=== PATIENT | female | born 1985 | race Caucasian/White ===

== ENCOUNTER 2020-01-15 10:46 | Emergency (ER) | payer OTHER, SELFPAY ==
--- NOTE | ~2020-01-15 | XR_ITS ---
EXAMINATION: XR foot LT min 3V EXAM DATE: 01/15/2020 11:14 INDICATION: Initial encounter following injury, with pain of the left foot, ankle. TECHNIQUE: Left foot dorsoplantar, lateral and oblique projections obtained and reviewed. Left ankle frontal, lateral and oblique projections obtained and reviewed. There is no prior study for compari son. FINDINGS: Left metatarsal bones unremarkable. The left ankle mortise appears intact. There are no acute fractures or dislocations identified. There is no subcutaneous gas. The soft tissue is unrem arkable. There are no radiopaque foreign bodies. IMPRESSION: 1. XR foot LT min 3V exam without acute osseous findings. Reviewed, dictated and finalized at location A.
--- NOTE | ~2020-01-15 | XR_ITS ---
EXAMINATION: XR ankle LT min 3V EXAM DATE: 01/15/2020 11:13 INDICATION: Initial encounter following injury, with pain of the left foot, ankle. TECHNIQUE: Left foot dorsoplantar, lateral and oblique projections obtained and reviewed. Left ankle frontal, lateral and oblique projections obtained and reviewed. There is no prior study for compari son. FINDINGS: Left metatarsal bones unremarkable. The left ankle mortise appears intact. There are no acute fractures or dislocations identified. There is no subcutaneous gas. The soft tissue is unrem arkable. There are no radiopaque foreign bodies. IMPRESSION: 1. Left foot, ankle exam without acute osseous findings. Reviewed, dictated and finalized at location A.
--- NOTE | 2020-01-15 11:06 | ED.GENADULT ---
HPI - General Adult General Chief complaint: Extremity Injury, Lower Stated complaint: L foot pain History of Present Illness HPI narrative: Tika is a previously healthy 34F that presented to the ED for left foot pain. She rolled it while walking 2 days ago. She has had worsening pain and swelling on the lateral side of her left foor since then. No other injuries or symptoms were reported. Related Data Home Medications Medication Instructions Recorded Confirmed No Home Medications 01/15/20 01/15/20 Allergies Allergy/AdvReac Type Severity Reaction Status Date / Time codeine AdvReac Nausea Verified 01/15/20 11:13 Review of Systems Constitutional: Constitutional: Reports no additional constitutional complaints Eyes: Eyes: Reports no additional eye complaints ENT: Reports system reviewed and no additional complaints, except as documented Cardiovascular: Cardiovascular: Reports no additional cardiovascular complaints Respiratory: Respiratory: Reports no additional respiratory complaints Gastrointestinal: Gastrointestinal: Reports no additional gastrointestinal complaints Musculoskeletal: Musculoskeletal: Reports as per HPI Integumentary/Breasts: Skin/Breast: Reports system reviewed and no additional complaints, except as docu Neurologic: Reports system reviewed and no additional complaints, except as documented Psychiatric: Psychiatric: Reports no additional psychiatric complaints Exam Const: General: no acute distress; No alert Orientation/consciousness: patient oriented x3 HENMT: Head: normal to inspection Eyes: Pupils: Equal, round and reactive pupils present Neck: Neck: normal visual inspection Chest: Chest palpation & inspection: normal inspection of the chest Resp: Effort & Inspection: normal respiratory effort and not labored Cardio: Rate: regular rate Skin: General skin exam: normal color Rashes: no rashes Neuro: General: patient oriented x3 and moves all extremities Extrem: Other: TTP over the 4th and 5th metatarsals of the left foot. No TTP over the ankle or lower extremity. no discoloration. Mild swelling Psych: Mental Status: mental status grossly normal Course Course Emergency Course: Seen and evaluated. Declined pain meds. Ordered radiographs. EXAMINATION: XR ankle LT min 3V EXAM DATE: 01/15/2020 11:13 INDICATION: Initial encounter following injury, with pain of the left foot, ankle. TECHNIQUE: Left foot dorsoplantar, lateral and oblique projections obtained and reviewed. Left ankle frontal, lateral and oblique projections obtained and reviewed. There is no prior study for comparison. FINDINGS: Left metatarsal bones unremarkable. The left ankle mortise appears intact. There are no acute fractures or dislocations identified. There is no subcutaneous gas. The soft tissue is unremarkable. There are no radiopaque foreign bodies. IMPRESSION: 1. Left foot, ankle exam without acute osseous findings. Vital Signs Vital signs: Vital Signs Temperature 36.9 C 01/15/20 11:13 Pulse Rate 88 01/15/20 11:13 Respiratory Rate 17 01/15/20 11:13 Blood Pressure 139/83 01/15/20 11:13 Pulse Oximetry 98 01/15/20 11:13 Temperature 36.9 C 01/15/20 11:13 Pulse Rate 88 01/15/20 11:13 Respiratory Rate 17 01/15/20 11:13 Blood Pressure 139/83 01/15/20 11:13 Pulse Oximetry 98 01/15/20 11:13 Medical Decision Making Vital Signs Vital Signs: Vital Signs Temperature 36.9 C 01/15/20 11:13 Pulse Rate 88 01/15/20 11:13 Respiratory Rate 01/15/20 11:13 Blood Pressure 139/83 01/15/20 11:13 Pulse Oximetry 98 01/15/20 11:13 Temperature 36.9 C 01/15/20 11:13 Pulse Rate 88 01/15/20 11:13 Respiratory Rate 01/15/20 11:13 Blood Pressure 139/83 01/15/20 11:13 Pulse Oximetry 98 01/15/20 11:13 Discharge Plan Discharge Clinical Impression: Ankle sprain and strain Patient Disposition: Home, Self-Care
[2020-01-15 11:13] VITALS: BP 139/83; PULSE 88; RESP 17; TEMP 36.9; O2SAT 98
== END 2020-01-15 11:30 | disposition home or self-care (01) ==
PROVIDERS: Emergency Provider Family Medicine
DX: S93.602A Unspecified sprain of left foot, initial encounter (principal); Y93.01 Activity, walking, marching and hiking
CPT/HCPCS: 73610; 73630; 99282; 99283

== ENCOUNTER 2020-06-30 15:58 | Outpatient (RCR) | payer OTHER, SELFPAY ==
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
--- NOTE | 2020-07-24 08:41 | PCPTNOTE ---
Pt. contacted the clinic stating that she had moved to [place] and would like to attend a facility closer to her home. Refer to pt. last daily note for discharge status. Thank you for the referral of this patient. Mikael Willis, MPT
== END 2020-07-07 09:46 | disposition home or self-care (01) ==
LOC: CHSPT 15:58
PROVIDERS: PCP Physician Assistant; Visit Provider Physician Assistant
DX: M25.551 Pain in right hip (principal)
CPT/HCPCS: 97110; 97161; 97530

== ENCOUNTER 2025-02-03 14:06 | Outpatient (CLI) | payer OTHER, SELFPAY ==
--- NOTE | 2025-02-03 14:22 | ECG_ITS ---
Test Date: 2025-02-03 14:46:54 Measurements Intervals [place] Rate: 72 P: 42 SC: 299 QRS: 53 QRSD: 92 T: 36 QT: 406 QTc: 447 Interpretive Statements SINUS RHYTHM WITH FIRST DEGREE AV BLOCK No previous ECG available for comparison Electronically Signed On 02-03-2025 15:02:21 CDT by Andrey Lezama M.D.
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
[2025-02-03 14:32] LABS: Hematocrit 46.0 % (37.0-47.0); Hemoglobin 15.3 g/dL (12.0-15.0); Mean Corpuscular HGB Conc 33.3 g/dl (32-36); Mean Corpuscular Hemoglobin 32.1 pg (26-34); Mean Corpuscular Volume 96.6 fl (80-100); Platelet Count Result 390 k/mm3 (150-375); Red Blood Count 4.76 M/mm3 (4.2-5.4); White Blood Count 10.4 K/mm3 (4.5-10.0)
[2025-02-03 14:57] LABS: Anisocytosis 1+; Basophils Absolute Manual 0.10 K/mm3 (0.0-0.1); Basophils Percent Manual 1 % (0-1); Eosinophils Absolute Manual 0.20 K/mm3 (0.02-0.50); Eosinophils Percent Manual 2 % (0-4); Lymphocytes Absolute Manual 4.36 K/mm3 (1.1-4.5); Lymphocytes Percent Manual 42 % (18-44); Monocytes Absolute Manual 0.72 K/mm3 (0.1-0.90); Monocytes Percent Manual 7 % (3-9); Neutrophils Percent Manual 48 % (46-73); Schistocytes None Seen; Total Cells Counted 100
== END 2025-02-03 14:07 | disposition home or self-care (01) ==
LOC: ANHLAB 14:10
PROVIDERS: PCP Registered Nurse; Visit Provider Obstetrics & Gynecology
DX: F17.210 Nicotine dependence, cigarettes, uncomplicated (principal); R10.2 Pelvic and perineal pain; N39.3 Stress incontinence (female) (male); I44.0 Atrioventricular block, first degree
CPT/HCPCS: 36415; 85025; 86850; 86900; 86901; 93005

== ENCOUNTER 2025-02-04 00:04 | Day surgery (SDC) | payer OTHER, SELFPAY ==
--- NOTE | 2025-02-01 07:25 | PM.IMHP ---
H&P: HPI History of Present Illness Date/Time: 02/01/25 07:25 Chief Complaint: Pelvic pain/high-grade EDMAR/stress urinary incontinence Narrative: This is a 39-year-old multiparous female admitted for robotic hysterectomy bilateral salpingectomy secondary to pelvic pain and recurrent high-grade EDMAR. She also complains of stress urinary incontinence losing urine with coughing laughing sneezing and finding the socially embarrassing. She has tried Kegel exercises without success. Risks and benefits of these procedures were reviewed including but exclusive of , aspiration, bleeding, transfusion, perforation injury to bowel bladder, ureters, or other internal organs with need for open laparotomy. The risk of mesh erosion was reviewed. The risk of need for catheterization was noted as well. The patient had all questions answered received the ACOG handout entitled hysterectomy as well as the de Miguel A handout in the TVT handout. She had all questions answered and asked to proceed Review of Systems Constitutional: Constitutional: Reports no additional constitutional complaints Eyes: Eyes: Reports no additional eye complaints ENT: Reports system reviewed and no additional complaints, except as documented Cardiovascular: Cardiovascular: Reports no additional cardiovascular complaints Respiratory: Respiratory: Reports no additional respiratory complaints Gastrointestinal: Gastrointestinal: Reports no additional gastrointestinal complaints Musculoskeletal: Musculoskeletal: Reports as per HPI Integumentary/Breasts: Skin/Breast: Reports system reviewed and no additional complaints, except as docu Neurologic: Reports system reviewed and no additional complaints, except as documented Psychiatric: Psychiatric: Reports no additional psychiatric complaints Meds Home Medications and Allergies Allergies Allergy/AdvReac Type Severity Reaction Status Date / Time codeine AdvReac Nausea Verified 01/15/20 11:13 Exam Const: General: cooperative, healthy appearing, comfortable, well groomed and overweight Orientation/consciousness: oriented to person, oriented to place and oriented to time HENMT: Head: normal to inspection Chest: Chest palpation & inspection: normal inspection of the chest Resp: Effort & Inspection: normal respiratory effort Cardio: Rate: regular rate Rhythm: regular rhythm Heart sounds: S1 normal heart sound present and S2 normal heart sound present GI: Inspection: normal to inspection : External Female Exam: normal external appearance and tender (Urethra hyperactive with Valsalva) Speculum Exam - Vagina: normal appearance of the vagina Speculum Exam - Cervix: normal appearance of the cervix Bimanual exam- vagina & uterus: enlarged, soft and Uterine tenderness Bimanual Exam- Adnexa, other: normal adnexae Assessment and Plan Assessment and plan (1) High grade squamous intraepithelial lesion (HGSIL) on cervicovaginal cytology: Code(s): R87.613 - High grade squamous intraepithelial lesion on cytologic smear of cervix (HGSIL) Status: Acute (2) Pelvic pain: Code(s): R10.2 - Pelvic and perineal pain Status: Acute (3) Primary stress urinary incontinence: Code(s): N39.3 - Stress incontinence (female) (male) Status: Acute Plan Proceed with robotic total vaginal hysterectomy and bilateral salpingectomy as well as tendon free vaginal tape and cystoscopy
--- NOTE | 2025-02-01 10:14 | PC.NURSE ---
Report to the Outpatient Waiting Room, entrance under the green pavilion located off [facility], at time 0600 on date 02/04/25. Planned Procedure Time: 0730.? Time changes happen often and if your time is changed the preop area will call you the afternoon before. - You and your visitor will be asked to self-screen and do not enter if you have any COVID symptoms. Please call surgeon if you need to reschedule. - A mask is optional within the hospital at this time. Patients may have clear liquids (water, carbonated beverages, clear teas, apple juice) until 3 hours prior to surgery with a maximum of 20 ounces. 0430 - No food from midnight until time of surgery and no smoking, or chewing tobacco (or any form of nicotine). No chewing gum, candy or mints. - Infants may have breast milk until 4 hours before surgery, infant formula 6 hours prior to surgery. - Children will be allowed to drink immediately following surgery.? If applicable, please bring a bottle or sippy cup to assist with drinking. Juice, water, soda, and popsicles are readily available.? For infants on formula, please bring formula the day of surgery.? Pacifiers are allowed. Take only the following medications with a SIP of water on the morning of surgery: N/A DO NOT STOP ANY OF YOUR OTHER PRESCRIPTION MEDICATIONS PRIOR TO SURGERY EXCEPT THE FOLLOWING Hold all vitamins and supplements for 3 days per anesthesiologist. Medications to discontinue per physician N/A Date to take last dose N/A Please no make-up, nail khmer, hairspray, perfume, deodorant, or body powder the day of surgery.? No jewelry (including any body piercings) or valuables the day of surgery, leave them at home.? Please take a shower or bath the night before, or the morning of, surgery with an antibacterial soap.? Wear comfortable, loose fitting clothing.? Children are encouraged to wear pajamas. - Jewelry must be removed prior to entering the operating room.? Rings and piercings that are not removed may be cut off. - The hospital will not accept responsibility for valuables.? - Please leave all valuables, including medications, at home the day of surgery. If you are going home after surgery, a licensed sales driver must drive you home.? - NO public transportation without another adult if you receive anesthesia. - We recommend that an adult stay with you for 24 hours following discharge. - We also recommend that you do not drive, make important decision, drink alcoholic beverages, or take any drugs that were not prescribed by your health care provider for at least 24 hours after your discharge time. For Pediatric surgeries, we recommend two adults accompany the child home. Follow any additional instructions given to you from your surgeon. Telephone instructions given to Patient- Tika Phan and asked if any additional questions and then verbalized understanding. Patient advised to call surgeon office or pre surgery nurse liaison [phone] if any additional questions.
[2025-02-01 10:18] VITALS: BMI 40.3
[2025-02-04] VITALS (14 sets, daily range): BP systolic 106–153; BP diastolic 72–100; PULSE 75–98; RESP 14–18; TEMP 36–37.2; O2SAT 93–98
--- OUTSIDE RECORDS SUMMARY | 2025-02-04 00:09 | XMS_ITS | Clinical Summary ---
Author Organization [facility] Address [facility] [place] [address] Care Team Providers Care Quill Collector Name Role Phone Ariel Terry MD Primary Care Provider [phone] Allergies Active Allergy Reactions Criticality Noted Date [...] Sex Assigned at Female 09/11/2024 5:32 PM PRODUCTION CONTROL PEGBOARD CLERK Legal Sex Female 9:38 PM PRODUCTION CONTROL PEGBOARD CLERK Gender Identity Not on file Sexual Orientation Not on file Last Filed Vital Signs Vital Sign Reading Time Taken Comments Blood Pressure 151/85 09/11/2024 6:50 PM PRODUCTION CONTROL PEGBOARD CLERK Pulse 101 09/11/2024 5:22 PM PRODUCTION CONTROL PEGBOARD CLERK Temperature 36.9 C (98.4 F) 09/11/2024 5:22 PM PRODUCTION CONTROL PEGBOARD CLERK Respiratory Rate 18 09/11/2024 5:22 PM PRODUCTION CONTROL PEGBOARD CLERK Oxygen Saturation 96% 09/11/2024 6:50 PM PRODUCTION CONTROL PEGBOARD CLERK Inhaled Oxygen Concentration - - Weight 97.5 kg (215 lb) 09/11/2024 5:22 PM PRODUCTION CONTROL PEGBOARD CLERK Height 157.5 cm (5' 2) 09/11/2024 5:22 PM PRODUCTION CONTROL PEGBOARD CLERK Body Mass Index 39.32 09/11/2024 5:22 PM PRODUCTION CONTROL PEGBOARD CLERK Plan of Treatment Health Maintenance Due Date [...] this topic Medical Devices Implanted Type Area Property Field Adjuster Device Identifier Shelf Expiration Date Model / Serial / Lot Implant Tightrope Abs Button Round 11mm Concave [employer] - [id number] Implanted:Qty: 1 on 01/17/2021 by Travis Healy MD at [facility] [place] Right: Knee [employer] [id number] 07/20/2025 AR-1588T B-3 / / [id number] [place] Suture Bio-Swivelock C [employer] - [id number] Implanted:Qty: 1 on 01/17/2021 by Travis Healy MD at [facility] [place] Right: Knee [employer] [id number] 10/18/2024 AR-2324B [facility] / / [id number] Flexigraft Implanted:Qty: 1 on 01/17/2021 by Travis Healy MD at [facility] Graft Right: Knee [facility] [id number] 10/24/2023 [facility] / [id number] / Internal Brace Kit Knee - [id number] Implanted:Qty: 1 on 01/17/2021 by Travis Healy MD at [facility] Knee Components Right: Knee [employer] [id number] 10/18/2024 AR-5511- CP / / [id number] Allograft Graftlink Convenience Pack Implanted:Qty: 1 on 01/17/2021 by Travis Healy MD at [facility] Right: Knee [employer] [id number] 06/19/2025 AR-1588A L-CP / / [id number] Biocomposite Knotless Swivelock [place] Implanted:Qty: 1 on 01/17/2021 by Travis Healy MD at [facility] Right: Knee [employer] [id number] 10/18/2024 AR-2324K [facility] / / [id number] Flexigraft Pre-Sutured Tendon Implanted:Qty: 1 on 01/17/2021 by Travis Healy MD at [facility] Right: Knee [facility] 10/13/2021 [facility] / [id number] / Insurance Care Teams Quill Collector Relationship Specialty Start Date End Date Ariel Terry MD [address] [place] [phone] PCP - General FAMILY PRACTICE 11/02/20
--- NOTE | 2025-02-04 06:27 | WPDHPUPDATE1 ---
History and Physical Update Update Date/Time: 02/04/25 06:27 History and Physical has been reviewed, including an updated exam of the patient. There are NO changes in the patient's condition. Risks, benefits, and alternatives have been discussed and questions answered. Patient agrees to proceed with procedure.
--- NOTE | 2025-02-04 06:38 | WPDANESEPPF ---
Anes - Initial Pre Proc Eval Procedure: Operation Date: 02/04/25 07:30 Proposed Procedures p Robotic Assisted Total Vaginal Hysterectomy with Bilateral Salpingectomy - Harshil Rios MD s Trans Vaginal Taping - Harshil Rios MD Date/Time: 02/04/25 06:38 Surgeon: Harshil Rios MD Pre Op Diagnosis: KESHAWN, Pelvic Pain, H I Grade EDMAR Patient Data Age: 39 Gender: F Height: 1.57 m Weight: 100 kg Allergies Allergy/AdvReac Type Severity Reaction Status Date / Time codeine AdvReac Nausea Verified 02/01/25 10:03 Home Medications ?Medication ?Instructions ?Recorded ?Confirmed ?Type No Home Medications 02/01/25 02/01/25 History Patient hx anesthesia problems: post op nausea/vomiting Family hx anesthesia problems: none Results Review: All pre-operative results and documents have been reviewed as part of the pre-operative evaluation. [facility] Past Medical History Medical History (Updated 02/04/25 @ 06:38 by Beny Monique DO) PONV (postoperative nausea and vomiting) Anxiety Surgical History Surgical History (Updated 02/04/25 @ 06:38 by Beny Monique DO) Hx laparoscopic cholecystectomy Social History Social History (Updated 02/04/25 @ 06:50 by Beny Monique DO) Smoking packs per day: 1 Smoking cigarettes per day: 20.0 Years smoked: 20 Smoking pack-years: 20.00 Smoking status: Current every day smoker Tobacco type: cigarettes Alcohol intake: current Drinks per week: 14 Alcohol use details: 2 /day Substance use type: marijuana Other substance usage details: daily user Spiritual care concerns: No Anes - Eval Final PreProcedure Day of Procedure 02/04/25 06:38 Patient weight: morbidly obese Heart: regular rate and rhythm Lungs: clear to auscultation Airway: Mallampati scale class III Neurological: alert and oriented Last oral intake: >/= 8 hours ASA classification: III Emergent: no Anesthetic plan: proceed Anesthesia type and monitoring: general ETT and standard monitoring Results Review: All pre-operative results and documents have been reviewed as part of the pre-operative evaluation. Informed Consent: The patient's anesthetic plan and its attendant risks and benefits were discussed with the patient/family/POA. Questions were solicited and answers provided to the satisfaction of the patient/family/POA.
[2025-02-04] MEDS: ACETAMINOPHEN 500 MG TABLET 1000 MG PO ×3 (06:45→19:55)
[2025-02-04] MEDS: LACTATED RINGERS 1,000 ML 30 ML IV CONT ×2 (06:50→09:34)
[2025-02-04] MEDS: KETOROLAC 15 MG/ML VIAL (*BKC) IV PUSH (06:52)
[2025-02-04] MEDS: SCOPOLAMINE 1 MG PATCH 1 PATCH TRANSDERM (07:00)
--- NOTE | 2025-02-04 07:01 | WPDHPUPDATE1 ---
History and Physical Update Update Date/Time: 02/04/25 07:01 History and Physical has been reviewed, including an updated exam of the patient. There are NO changes in the patient's condition. Risks, benefits, and alternatives have been discussed and questions answered. Patient agrees to proceed with procedure. will removwe nexplanon
[2025-02-04 07:11] LABS: BEDSIDEPREGUCG Negative (Negative)
[2025-02-04] MEDS: ceFAZolin 2 GM in SODIUM CHLORIDE 0.9% IV 50 ML 100 ML IVPB (07:28)
--- NOTE | 2025-02-04 08:14 | S_PTH ---
PATIENT: Tika Phan LOC: [facility] U#:[id number] AGE/SX: 39/F ROOM: RE02/04/[address]: Harshil Rios MD : 1985 BED: DIS: 02/05/2025 SPEC #: [id number] RECD: 02/04/25 10:12 STATUS: MONICA REQ #: [id number] RICKY: 02/04/25 08:[address]: Harshil Anne DEPT: [facility] Surgical RECD BY: Yudith Dwyer ENTERED: 02/04/25 10:13 SP TYPE: Surgical OTHR DR: Eleazar Morales, RESOURCE DIRECTOR Tissues: A - Uterus Procedures: Hematoxylin and Eosin Stain Gross and Microscopic Level 5
--- NOTE | 2025-02-04 09:00 | P.OP_ITS ---
Procedure Note - Detailed Date of Procedure 02/04/25 Pre-op Diagnosis KESHAWN, Pelvic Pain, H I Grade EDMAR Post-op Diagnosis Same Procedure Performed Robotic total vaginal hysterectomy bilateral salpingectomy/cystoscopy/tension- free vaginal tape/removal of Nexplanon Surgeon Harshil Rios MD Anesthesia General Indications This is a 39-year-old female with recurrent high-grade dysplasia stress urinary incontinence and desires removal of her Findings Mildly enlarged uterus. Normal-appearing ovaries and tubes. Description of Procedure Patient was prepped and draped in the sterile fashion placed dorsal lithotomy position. Under excellent general trach anesthesia weighted speculum placed in posterior fornix vagina. Anterior lip of the cervix grasped with single-tooth tenaculum. Uterus sounded to 9cm. Serial dilatation fragmented dilators performed followed by passes the 8. SHEA and the 3. . Cold cup. An 18 [place] catheter was placed in the bladder and drained clear urine. The weighted speculum and the single-tooth were removed. The gloves were changed. A supraumbilical incision made the Veress needle passed abdomen filled with CO2 gas to 15mm emerge the 8mm trocar advanced in the abdomen. Downside visualized seen. Patient placed in Trendelenburg and left and right lateral quadrant incisions made. 8mm trocars advanced under direct visualization assuring no injury. 8mm trocar was advanced in the right upper quadrant under direct visualization no injury seen. Robot was docked. Attention was turned to the dependency counselor. The left round ligament grasped, burned, cut. Anterior bladder flap was formed by sharply dissecting the peritoneum reflecting the bladder caudally away from the cervix uterus the opposite round ligament which was clamped, burned, cut. Next left fallopian tube was sharply dissected away from the ovarian complex by using sharp dissection monopolar cautery as well as bringing this to the origin of the uterus. In similar fashion the right fallopian tube was dissected away from the ovarian complex and left attached to its origin. The utero-ovarian ligament on the left was skeletonized to conserve the left ovary this was clamped, burned, cut and brought to level of previous cut round ligament. In similar fashion the utero- ovarian ligament on the right was cut clamped burned conserving the right ovary. The cardinal broad ligaments on the left were serially skeletonized clamping burning cutting and bringing this down to the level of the large tortuous vessels on the left these were individually clamped, burned, cut. In similar fashion the cardinal broad ligaments were skeletonized clamping burning cutting and hugging the uterus and cervix until uterine vessels could be seen on the right these were individually clamped, burned, cut. Blanching the uterus was noted. A colpotomy incision was made cervix uterus and tubes removed through the vagina. The vagina then closed with continuous running 0V lock from lateral edge to lateral edge back to the midline. Irrigation undertaken until clear blood loss was estimated at minimal to none. The Gretchen was placed over the top and hemostasis was assured. The robot was undocked. The gas removed from the abdomen. The incisions closed with 4 Monocryl and glue. Attention was turned to the tension-free vaginal tape. The 18 [place] catheter had already been placed in the bladder. And in for urethral incision made its midportion and the lateral bladder space was entered by blunt dissection bilaterally. The catheter guide was placed to guide the urethra and was wrist was pushed laterally the right retropubic bladder space entered a 45 degree angle upto30? and through the skin and fascia. The urethra was retracted to the opposite side and this was repeated into the at a 45 degree angle into the retropubic better space on the left and up through 35 through the fascia and skin. The catheter was removed the 70degree cystoscope inserted no injury seen. The catheter was then replaced. The tension-free tape was brought up to the tightness of an open pee on clamped and the tape set flush and flat below the urethra. The plastic was removed and the tape cut at the suprapubic area. The vagina was then closed with continuous running 3-0 chromic. Blood loss was estimated about 100cc at that point mostly due to this DVT. The the instruments were withdrawn. Next the left antecubital space was swabbed with Betadine solution stab wound made with an 11 blade next blood on removed in 1 piece without difficulty this was glued. Patient tolerated the procedure well went to recovery in satisfactory condition. All sponge, needle, instrument counts were correct. There were no immediate complications Implants tvt Estimated Blood Loss 100 Drains No Packing No Pathology Yes Complications No immediate complications Condition Stable Disposition PACU
--- NOTE | 2025-02-04 09:07 | P.DS_ITS ---
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 She remained afebrile. She was up, voiding without difficulty, eating regular diet, ambulating, and generally without complaints. Time Spent with Patient Time attestation: Total time spent providing and/or coordinating discharge services: Exam Const: General: cooperative, healthy appearing, comfortable, well groomed and overweight Orientation/consciousness: oriented to person, oriented to place and oriented to time HENMT: Head: normal to inspection Chest: Chest palpation & inspection: normal inspection of the chest Resp: Effort & Inspection: normal respiratory effort Cardio: Rate: regular rate Rhythm: regular rhythm Heart sounds: S1 normal heart sound present and S2 normal heart sound present GI: Inspection: normal to inspection : External Female Exam: normal external appearance and tender (Urethra hyperactive with Valsalva) Speculum Exam - Vagina: normal appearance of the vagina Speculum Exam - Cervix: normal appearance of the cervix Bimanual exam- vagina & uterus: enlarged, soft and Uterine tenderness Bimanual Exam- Adnexa, other: normal adnexae DS: Data Data Completed and Pending Pending studies at discharge: Pending at discharge 02/04/25 08:14 Surgical [PTH] Routine Labs on day of discharge: Labs from last 24 hours 02/04/25 07:07 POC Urine HCG, Qual Negative Discharge Plan Discharge Patient Disposition: Home Discharge Instructions: Remove the Scopolamine patch that was placed behind your ear in 72 hours or less. Wash your hands after touching. Patient Instructions: Laparoscopic Hysterectomy (DC) Patient Language: Irish Stand Alone Forms: General Discharge Instructions Follow-up/Referrals: Harshil Anne MD [Physician] - Discharge Medications: New hydrocodone-acetaminophen 5-325 mg tablet 1 tablet PO Q4H PRN (Reason: pain) Qty: 20 0RF ondansetron 4 mg tablet,disintegrating 4 mg PO Q6H PRN (Reason: nausea and vomiting) Qty: 20 0RF
[2025-02-04] MEDS: ONDANSETRON INJ 4 MG/2 ML VIAL IV PUSH (10:00)
--- NOTE | 2025-02-04 10:42 | PC.NURSE ---
This patient, Tkia Phan, was received from PACU on 02/04/25 at 1042. Patient/family oriented to unit policies and routines.
[2025-02-04] MEDS: oxyCODONE HCL (*CRX) 5 MG TAB IR PO (11:18)
[2025-02-04] MEDS: DEXTROSE 5%/LACTATED RINGERS 1,000 ML 125 ML IV CONT (11:21)
[2025-02-04] MEDS: KETOROLAC 30 MG/ML VIAL (*BKC) IV PUSH (12:59)
[2025-02-04] MEDS: DOCUSATE SODIUM 100 MG CAPSULE PO ×2 (13:00→18:32)
[2025-02-04] MEDS: ENOXAPARIN 40 MG/0.4 ML SYRINGE SUB-Q (13:00)
[2025-02-04] MEDS: SIMETHICONE 80 MG TAB.CHEW PO ×2 (13:00→18:32)
[2025-02-04] MEDS: NICOTINE (*PBKC) 14 MG PATCH 1 PATCH TRANSDERM (13:27)
--- NOTE | 2025-02-04 13:27 | PC.NURSE ---
0284 Dr. Jackson Rios wanted to RN to advise patient that she should not smoke, patient aware and said she will discuss with physician tomorrow.
--- NOTE | 2025-02-04 16:44 | PC.NURSE ---
Dr. Jackson Rios called to check on patient, with having good urine output she may have her catheter out this evening if she wants and she may not smoke while wearing her nicotine patch.
[2025-02-04] MEDS: oxyCODONE HCL (*CRX) 5 MG TAB IR 10 MG PO (18:32)
[2025-02-04] MEDS: IBUPROFEN 600 MG TABLET PO (19:55)
[2025-02-05] MEDS: IBUPROFEN 600 MG TABLET PO ×2 (02:12→08:27)
[2025-02-05] MEDS: ACETAMINOPHEN 500 MG TABLET 1000 MG PO ×2 (02:12→08:27)
[2025-02-05 04:00] VITALS: BP 118/78; PULSE 94; RESP 16; TEMP 37; O2SAT 93
[2025-02-05 05:02] LABS: Hematocrit 42.2 % (37.0-47.0); Hemoglobin 14.2 g/dL (12.0-15.0); Mean Corpuscular HGB Conc 33.6 g/dl (32-36); Mean Corpuscular Hemoglobin 33.0 pg (26-34); Mean Corpuscular Volume 98.1 fl (80-100); Platelet Count Result 373 k/mm3 (150-375); Red Blood Count 4.30 M/mm3 (4.2-5.4); White Blood Count 28.9 K/mm3 (4.5-10.0)
[2025-02-05 05:27] LABS: Anisocytosis 1+; Band Neutrophils Percent 1 % (0-6); Lymphocytes Absolute Manual 3.17 K/mm3 (1.1-4.5); Lymphocytes Percent Manual 11.0 % (18-44); Monocytes Absolute Manual 0.28 K/mm3 (0.1-0.90); Monocytes Percent Manual 1 % (3-9); Neutrophils Absolute Manual 25.43 K/mm3 (1.3-6.7); Neutrophils Percent Manual 87 % (46-73); Schistocytes None Seen; Total Cells Counted 100
[2025-02-05 07:56] VITALS: BP 128/76; PULSE 92; RESP 19; TEMP 37.3; O2SAT 97
[2025-02-05] MEDS: DOCUSATE SODIUM 100 MG CAPSULE PO (08:27)
[2025-02-05] MEDS: SIMETHICONE 80 MG TAB.CHEW PO (08:27)
--- NOTE | 2025-02-05 10:00 | PM.GYNPNOP ---
EXECUTIVE MARKETING ASSISTANT - A/P Postoperative Procedures: Procedures Operation Date: 02/04/25 07:30 Actual Procedure Side Surgeon p Robotic Assisted Total Vaginal Hysterectomy with Bilateral Salpingectomy Bilateral Harshil Rios MD s Trans Vaginal Taping, Nexplanon Removal Not Applicable Harshil Rios MD Postoperative day: 1 Postoperative status: doing well Postoperative plan: voiding trials (If unable to void, straight cath. Wait 6 hours and if still unable, dc with catheter) Time Spent With Patient Time: Total time spent is greater than 50% in coordination of care (as documented) at patient's floor/unit and/or counseling patient: Time with patient: less than 15 minutes EXECUTIVE MARKETING ASSISTANT- PN:Subj Post-Op Subjective Date/time seen: 02/05/25 10:00 Interval history: No urge to void. Catheter out for 6 hours. Subjective: patient desires discharge and patient is tolerating oral intake Exam Narrative: inc c/d/i abdomen soft nt bladder scanner-260 cc EXECUTIVE MARKETING ASSISTANT - PN: Obj Data Vital Signs Vital Signs: Vital Signs - 24 hr 02/04/25 10:05 02/04/25 10:20 02/04/25 10:35 Temperature Pulse Rate 93 95 96 Respiratory Rate 16 15 14 Blood Pressure 123/83 126/80 132/96 H Pulse Oximetry 94 96 96 Oxygen Delivery Nasal Cannula Nasal Cannula Nasal Cannula Oxygen Flow Rate 2 2 2 02/04/25 10:45 02/04/25 11:00 02/04/25 15:45 Temperature 97.2 F L Pulse Rate 85 75 Respiratory Rate 16 14 16 Blood Pressure 125/81 Pulse Oximetry 97 97 97 Oxygen Delivery Nasal Cannula Room Air Oxygen Flow Rate 2 02/04/25 15:45 02/04/25 19:35 02/04/25 19:35 Temperature 96.8 F L 98.9 F Pulse Rate 75 81 Respiratory Rate 16 16 Blood Pressure 148/88 H 138/83 Pulse Oximetry 97 97 Oxygen Delivery Room Air Oxygen Flow Rate 02/04/25 23:39 02/05/25 04:00 02/05/25 07:56 Temperature 98.7 F 98.6 F 99.1 F Pulse Rate 92 94 92 Respiratory Rate 16 16 19 Blood Pressure 106/72 118/78 128/76 Pulse Oximetry 93 93 97 Oxygen Delivery Oxygen Flow Rate Intake/Output Intake/Output: Intake & Output 02/02/25 02/03/25 02/04/25 07/19/25 23:59 23:59 23:59 23:59 Intake Total 2723 200 Output Total 2335 200 Balance 388 0 Meds/Results Medications: Active Medications Generic Name Dose Route Start Last Admin Trade Name Freq PRN Reason Stop Dose Admin Acetaminophen 1,000 mg 02/04/25 12:00 02/05/25 08:27 Acetaminophen 500 Mg Tablet PO 1,000 mg Q6HR GHANSHYAM Administration Diphenhydramine HCl 25 mg 02/04/25 19:05 Diphenhydramine Hcl Cap 25 Mg Capsule PO Q6H PRN Itching or nausea Docusate Sodium 100 mg 02/04/25 10:36 02/05/25 08:27 Docusate Sodium 100 Mg Capsule PO 100 mg BID GHANSHYAM Administration Enoxaparin Sodium 40 mg 02/04/25 10:36 02/04/25 13:00 Enoxaparin 40 Mg/0.4 Ml Syringe SUB-Q 40 mg DAILY GHANSHYAM Administration Ibuprofen 600 mg 02/05/25 06:00 02/05/25 08:27 Ibuprofen 600 Mg Tablet PO 600 mg Q6HR GHANSHYAM Administration Naloxone HCl 0.1 mg 02/04/25 10:36 Naloxone Hcl 0.4 Mg/Ml Vial IV PUSH Q2M PRN Respiratory rate less than 10 Nicotine 1 patch 02/04/25 11:50 02/04/25 13:27 Nicotine (*Pbkc) 14 Mg Patch TRANSDERM 1 patch DAILY PRN Administration Nicotine Cravings Ondansetron HCl 4 mg 02/04/25 19:06 Ondansetron Hcl Odt 4 Mg Tablet PO Q6H PRN Nausea And Vomiting Oxycodone HCl 5 mg 02/04/25 10:36 02/04/25 11:18 Oxycodone Hcl (*Crx) 5 Mg Tab Ir PO 5 mg Q4H PRN Administration Pain Rated 4-6 Oxycodone HCl 10 mg 02/04/25 10:36 02/04/25 18:32 Oxycodone Hcl (*Crx) 5 Mg Tab Ir PO 10 mg Q6H PRN Administration Pain Rated 7-10 Simethicone 80 mg 02/04/25 12:00 02/05/25 08:27 Simethicone 80 Mg Tab.Chew PO 80 mg TIDWM GHANSHYAM Administration Labs 02/05/25 03:50 Labs: Laboratory Results - last 24 hr 02/05/25 03:50 WBC 28.9 H RBC 4.30 Hgb 14.2 Hct 42.2 MCV 98.1 MCH 33.0 MCHC 33.6 RDW 13.2 Plt Count 373 MPV 9.3 Immature Gran % (Auto) Not Reportable Neut % (Auto) Not Reportable Lymph % (Auto) Not Reportable Wallace % (Auto) Not Reportable Eos % (Auto) Not Reportable Baso % (Auto) Not Reportable Lymph # (Auto) Not Reportable Wallace # (Auto) Not Reportable Eos # (Auto) Not Reportable Baso # (Auto) Not Reportable Abs Immat Gran (auto) Not Reportable Absolute Neuts (auto) Not Reportable Absolute Nucleated RBC Not Reportable Total Counted 100 Neutrophils % (Manual) 87 H Band Neutrophils % 1 Lymphocytes % (Manual) 11.0 L Monocytes % (Manual) 1 L Nucleated RBC % Not Reportable Abs Neuts (Manual) 25.43 H Abs Lymphs (Manual) 3.17 Abs Monocytes (Manual) 0.28 Platelet Estimate Adequate Clumped Platelets Present Anisocytosis 1+ Schistocytes None seen
== END 2025-02-05 11:07 | disposition home or self-care (01) ==
LOC: ANHSURGERY 06:28 → ANHOB2 11:02
PROVIDERS: PCP Registered Nurse; Visit Provider Obstetrics & Gynecology
PROC: (CPT 58552; principal; 2025-02-04 07:30)
PROC: 0TSD0ZZ Reposition Urethra, Open Approach (ICD-10-PCS; CPT 58552; 2025-02-04 07:30)
DX: R87.613 High grade squamous intraepithelial lesion on cytologic smear of cervix (HGSIL) (principal); R10.2 Pelvic and perineal pain; N39.3 Stress incontinence (female) (male); Z30.46 Encounter for surveillance of implantable subdermal contraceptive; F17.210 Nicotine dependence, cigarettes, uncomplicated; F12.90 Cannabis use, unspecified, uncomplicated; E66.01 Morbid (severe) obesity due to excess calories; Z68.39 Body mass index [BMI] 39.0-39.9, adult
CPT/HCPCS: 58552; 57288; 11982; S2900; 36415; 85025; 88307; 99199; J0690; A9270; C1771; J0360; J0616; J1100; J1171; J1200; J1650; J1885; J2003; J2250; J2405; J2704; J3010; J7030; J7120; J7121